=== PATIENT | female | born 1955 | race Two or more races ===

== ENCOUNTER 2023-02-15 11:08 | Inpatient (IN) | payer OTHER ==
[~2023-02-15] VITALS: Ht 167.6 cm; Wt 84.0 kg
[2023-02-15] MEDS ORDERED: PANTOPRAZOLE 40 MG/10 ML VIAL INJ IV ONE (11:45)
[2023-02-15] MEDS ORDERED: MORPHINE SULFATE 4 MG/ML SYR/VIAL IV ONE (11:45)
[2023-02-15] MEDS ORDERED: ONDANSETRON HCL 4 MG/2 ML VIAL IV ONE (11:45)
[2023-02-15] MEDS ORDERED: SODIUM CHLORIDE 0.9% 1,000 ML IVB ONE (11:45)
[2023-02-15 12:59] LABS: Urine Bacteria NONE SEEN /hpf (None Seen); Urine Blood 2+ /uL (Negative); Urine Mucus FEW (None Seen); Urine WBC 5 /hpf (0 - 5)
[2023-02-15 12:59] LABS: Basophils # (auto) 0 10 ^3/uL (0-0.2); Basophils % (auto) 0.2 % (0.0-2.0); Eosinophils # (auto) 0 10 ^3/uL (0-0.8); Eosinophils % (auto) 0.1 % (0.0-7.0); Hematocrit 44.7 % (36.0-46.0); Hemoglobin 14.8 g/dL (12.2-16.2); Lymphocytes # (auto) 1.7 10 ^3/uL (0.4-5.4); Mean Corpuscular Hemoglobin 29.8 pg (28.0-32.0); Mean Corpuscular Hgb Conc. 33.1 g/dL (32.0-36.0); Mean Corpuscular Volume 89.9 fL (80.0-100.0); Monocytes # (auto) 1.4 10 ^3/uL (0-1.3); Monocytes % (auto) 7.1 % (0.0-12.0); Neutrophils # (auto) 16.2 10 ^3/uL (1.6-8.6); Neutrophils % (auto) 83.6 % (37.0-80.0); Nucleated Red Blood Cells % 0.1 %; Red Blood Cells 4.97 10^6/uL (4.0-5.20); Red Cell Distribution Width 13.8 % (11.8-14.3); White Blood Cell 19.4 10^3/uL (4.4-10.8)
[2023-02-15 13:23] LABS: BUN/Creatinine Ratio 16.7 (10.0-20.0); Calcium 9.7 mg/dL (8.5-10.1); Potassium 3.2 mmol/L (3.5-5.1)
[2023-02-15 13:26] LABS: Total Protein 8.4 g/dL (6.4-8.2)
[2023-02-15] MEDS ORDERED: hydrALAZINE HCL 20 MG/ML VL IV PRN (14:00)
[2023-02-15] MEDS ORDERED: MORPHINE SULFATE INJ 2 MG/ml SYRG IV PRN (14:00)
[2023-02-15] MEDS ORDERED: MORPHINE SULFATE 4 MG/ML SYR/VIAL IV PRN (14:00)
[2023-02-15] MEDS ORDERED: NITROGLYCERIN 0.4 MG SL TAB SL PRN (14:00)
[2023-02-15] MEDS ORDERED: PIPERACILLIN-TAZOB 3.375GM 100 ML IV ONE (14:15)
[2023-02-15] MEDS ORDERED: POTASSIUM CHL 20 Meq TABLET PO ONE (19:00)
[2023-02-15 21:35] VITALS: BP 124/70
[2023-02-15 22:00] VITALS: BP 124/70
[2023-02-16] VITALS (7 sets, daily range): BP systolic 110–137; BP diastolic 62–78
[2023-02-16] MEDS: FAMOTIDINE (10MG/ML) 2ML VL IV SCH ×3 (00:37→21:17)
[2023-02-16] MEDS: MORPHINE SULFATE INJ 2 MG/ml SYRG IV PRN ×2 (00:58→21:17)
[2023-02-16] MEDS: PIPERACILLIN-TAZOB 3.375GM 100 ML IV SCH ×5 (01:09→18:12)
[2023-02-16] MEDS: D5W/SOD CHL 0.45%/KCL 20MEQ 1,000 ML IV SCH ×3 (01:09→21:40)
[2023-02-16 05:49] LABS: Basophils # (auto) 0 10 ^3/uL (0-0.2); Basophils % (auto) 0.2 % (0.0-2.0); Eosinophils # (auto) 0.1 10 ^3/uL (0-0.8); Hematocrit 39.3 % (36.0-46.0); Hemoglobin 13.4 g/dL (12.2-16.2); Lymphocytes # (auto) 1.8 10 ^3/uL (0.4-5.4); Lymphocytes % (auto) 16.2 % (10.0-50.0); Mean Corpuscular Hemoglobin 30.8 pg (28.0-32.0); Mean Corpuscular Hgb Conc. 34.1 g/dL (32.0-36.0); Mean Corpuscular Volume 90.1 fL (80.0-100.0); Monocytes # (auto) 0.9 10 ^3/uL (0-1.3); Monocytes % (auto) 8.3 % (0.0-12.0); Neutrophils # (auto) 8.4 10 ^3/uL (1.6-8.6); Neutrophils % (auto) 74.3 % (37.0-80.0); Red Blood Cells 4.36 10^6/uL (4.0-5.20); Red Cell Distribution Width 13.7 % (11.8-14.3); White Blood Cell 11.3 10^3/uL (4.4-10.8)
[2023-02-16 06:00] LABS: INR 0.97 (0.9-1.15); Partial Thromboplastin Time 26.5 sec (24.6-33.4); Potassium 3.5 mmol/L (3.5-5.1)
[2023-02-16 06:09] LABS: Albumin 2.6 g/dL (3.4-5.0); BUN/Creatinine Ratio 25.5 (10.0-20.0); Calcium 9.2 mg/dL (8.5-10.1); Total Protein 6.9 g/dL (6.4-8.2)
[2023-02-16] MEDS ORDERED: BUPIVACAINE HCL 0 ML ONE (09:12)
[2023-02-16] MEDS ORDERED: BUPIVACAINE 0.25% INJ 50ML VIAL ONE (09:14)
[2023-02-16] MEDS ORDERED: BUPIVACAINE W/ EPINEPH 0.25% INJ 50ML MDV ONE (09:30)
[2023-02-16] MEDS ORDERED: MIDAZOLAM HCL 2MG/2ML 2ml VIAL (1mg/ml) ONE (09:57)
[2023-02-16] MEDS ORDERED: fentaNYL CITRATE 100 MCG/2 ML VL ONE (09:57)
[2023-02-16] MEDS ORDERED: ROCURONIUM 10MG/ML 10ML VIAL IV ONE (09:58)
[2023-02-16] MEDS ORDERED: LIDOCAINE 2% (LOCAL ANESTH.) PF 5ml SDV ONE (10:02)
[2023-02-16] MEDS ORDERED: ONDANSETRON HCL 4 MG/2 ML VIAL ONE (10:02)
[2023-02-16] MEDS ORDERED: NEOSTIGMINE 1 MG/ML INJ (10mg/10ML VIAL) ONE (11:41)
[2023-02-16] MEDS ORDERED: GLYCOPYRROLATE 0.2 MG/ML 1ML VIAL ONE (11:41)
[2023-02-16] MEDS ORDERED: ONDANSETRON HCL 4 MG/2 ML VIAL IV PRN (12:00)
[2023-02-16] MEDS ORDERED: HYDROmorphone HCL 2 MG/ML VL/or syr IV PRN ×2 (12:00)
[2023-02-16] MEDS ORDERED: HYDROmorphone HCL 2 MG/ML VL/or syr IV ONE (12:11)
[2023-02-16] MEDS: PROMETHAZINE HCL 25 MG/ML 1ML IV PRN (21:09)
[2023-02-17] VITALS (7 sets, daily range): BP systolic 107–124; BP diastolic 55–79
[2023-02-17] MEDS: PIPERACILLIN-TAZOB 3.375GM 100 ML IV SCH ×4 (00:09→18:16)
[2023-02-17] MEDS: PROMETHAZINE HCL 25 MG/ML 1ML IV PRN (02:30)
[2023-02-17] MEDS: MORPHINE SULFATE INJ 2 MG/ml SYRG IV PRN (02:31)
[2023-02-17 05:43] LABS: Basophils # (auto) 0 10 ^3/uL (0-0.2); Basophils % (auto) 0.2 % (0.0-2.0); Eosinophils # (auto) 0.1 10 ^3/uL (0-0.8); Eosinophils % (auto) 0.7 % (0.0-7.0); Hematocrit 38.1 % (36.0-46.0); Lymphocytes # (auto) 1.4 10 ^3/uL (0.4-5.4); Mean Corpuscular Hemoglobin 30.6 pg (28.0-32.0); Mean Corpuscular Hgb Conc. 34.1 g/dL (32.0-36.0); Mean Corpuscular Volume 89.9 fL (80.0-100.0); Monocytes # (auto) 0.7 10 ^3/uL (0-1.3); Monocytes % (auto) 7.7 % (0.0-12.0); Neutrophils # (auto) 6.8 10 ^3/uL (1.6-8.6); Neutrophils % (auto) 75.4 % (37.0-80.0); Red Blood Cells 4.23 10^6/uL (4.0-5.20)
[2023-02-17 06:03] LABS: Albumin 2.5 g/dL (3.4-5.0); Calcium 8.9 mg/dL (8.5-10.1); Potassium 3.6 mmol/L (3.5-5.1)
[2023-02-17 06:09] LABS: BUN/Creatinine Ratio 11.3 (10.0-20.0); Bilirubin, Total 0.8 mg/dL (0.2-1.0); Total Protein 6.8 g/dL (6.4-8.2)
[2023-02-17] MEDS: FAMOTIDINE (10MG/ML) 2ML VL IV SCH (10:28)
[2023-02-17] MEDS ORDERED: MORPHINE SULFATE INJ 2 MG/ml SYRG IV PRN ×2 (11:15)
[2023-02-17] MEDS ORDERED: HYDROcodone-ACET 5/325MG TAB PO PRN (11:15)
[2023-02-17] MEDS ORDERED: LACTULOSE 20Gm/30ML SOLN PO PRN (11:15)
[2023-02-18 05:00] VITALS: BP 128/74
[2023-02-18 06:12] LABS: Albumin 2.4 g/dL (3.4-5.0); Calcium 9.1 mg/dL (8.5-10.1)
[2023-02-18 06:16] LABS: BUN/Creatinine Ratio 8.7 (10.0-20.0); Bilirubin, Total 0.6 mg/dL (0.2-1.0); Potassium 3.3 mmol/L (3.5-5.1); Total Protein 6.5 g/dL (6.4-8.2)
[2023-02-18] MEDS: PIPERACILLIN-TAZOB 3.375GM 100 ML IV SCH ×2 (06:16)
[2023-02-18 08:00] VITALS: BP 127/72
[2023-02-18 09:00] VITALS: BP 127/72
[2023-02-18] MEDS ORDERED: IBUP600T28 PO (09:14)
[2023-02-18] MEDS ORDERED: PANT40T PO (09:16)
[2023-02-18 10:18] VITALS: BP 127/72
== END 2023-02-18 11:36 | disposition home or self-care (01) | DRG 419 ==
LOC: ER 11:08 → OVERFLOW 14:07 → EAST 21:31
PROVIDERS: ADMIT Hospitalist; ATTEND Hospitalist
PROC: 0FT44ZZ Resection of Gallbladder, Percutaneous Endoscopic Approach (ICD-10-PCS; principal; 2023-02-16 10:00)
DX: K80.00 Calculus of gallbladder with acute cholecystitis without obstruction (principal); I10 Essential (primary) hypertension; K66.0 Peritoneal adhesions (postprocedural) (postinfection); Z98.51 Tubal ligation status; Z82.49 Family history of ischemic heart disease and other diseases of the circulatory system; K82.A1 Gangrene of gallbladder in cholecystitis
CPT/HCPCS: 36415; 71045; 76705; 80053; 81001; 83690; 85025; 85610; 85730; 87070; 87075; 87205; 93306; G0378; J2001; J2250; J2405; J2543; J3490